=== PATIENT | female | born 1980 | race Caucasian/White ===

== ENCOUNTER → 2022-02-07 12:58 | Outpatient (CLI) | payer BC, SELFPAY ==
--- NOTE | 2022-02-07 | DI.RAD_ITS ---
Exam(s) XR CHEST 2V PA LATERAL EXAM: XR CHEST 2V PA LATERAL CLINICAL HISTORY: COUGH R05.8 TECHNIQUE: COMPARISON: No exams were available for comparison FINDINGS: The heart is not enlarged. There are streaky and patchy areas of increased pulmonary radiodensity se en bilaterally. No prior films available for comparison. The findings may represent a multifocal pn eumonia. There is a nodular appearance of an area of increased radiodensity in the left lung base, mass lesion not excluded. No pleural effusion seen. IMPRESSION: Suspected multifocal pulmonary consolidation. Underlying mass not excluded. Follow-up chest radiogr aphs are requested following treatment and if the findings do not resolve additional evaluation with chest CT would be recommended to exclude malignancy. RADIATION DOSE DELIVERED: Total DLP
== END ==
PROVIDERS: Visit Provider Physician Assistant Medical
DX: R05.8 Other specified cough (principal); R91.8 Other nonspecific abnormal finding of lung field
CPT/HCPCS: 71046

== ENCOUNTER 2022-02-07 18:38 | Outpatient (REF) | payer BC, SELFPAY ==
[2022-02-08 15:34] LABS: COVID-19 RT-PCR UVMMC Result Negative (Negative)
== END 2022-02-07 18:39 | disposition home or self-care (01) ==
LOC: LBN 18:38
PROVIDERS: Visit Provider Physician Assistant Medical
DX: Z20.822 Contact with and (suspected) exposure to COVID-19 (principal); R05.8 Other specified cough
CPT/HCPCS: U0003